=== PATIENT | male | born 1965 | race Caucasian/White ===

== ENCOUNTER 2021-03-31 20:00 | Observation (INO) | payer MEDICARE ==
[~2021-03-31] VITALS: Ht 188 cm; Wt 199.5 kg
[2021-03-31] MEDS ORDERED: ATOR80 PO (20:17)
[2021-03-31] MEDS ORDERED: ABILIFY MYCITE5 M2 PO (20:17)
[2021-03-31] MEDS ORDERED: Aspir 8181 MG PO (20:17)
[2021-03-31] MEDS ORDERED: ALBU90OI6 INH (20:17)
[2021-03-31] MEDS ORDERED: CLOZ100 PO ×2 (20:18)
[2021-03-31] MEDS ORDERED: VITAMIN D31000 UNI1 PO (20:18)
[2021-03-31] MEDS ORDERED: GABA300 PO (20:19)
[2021-03-31] MEDS ORDERED: Voltaren100 GM TOP (20:19)
[2021-03-31] MEDS ORDERED: ZESTRIL40 M1 PO (20:19)
[2021-03-31] MEDS ORDERED: Hair, Skin & N1 EACH PO (20:19)
[2021-03-31] MEDS ORDERED: METF500 PO (20:19)
[2021-03-31] MEDS ORDERED: SPIR50 PO (20:20)
[2021-03-31] MEDS ORDERED: VENL75ER PO (20:20)
[2021-03-31] MEDS ORDERED: METO25 PO (20:20)
[2021-03-31] MEDS ORDERED: PERCOCET 10-321 EAC7 PO (20:22)
[2021-04-01 04:59] LABS: BASOPHILS ABSOLUTE AUTO 0.12 K/mm3 (0.00-0.23); BASOPHILS PERCENT AUTO 1 % (0-2); EOSINOPHILS ABSOLUTE AUTO 0.59 K/mm3 (0.00-0.68); EOSINOPHILS PERCENT AUTO 5 % (0-6); Hematocrit 41.2 % (37.0-53.0); Hemoglobin 12.7 g/dL (13.5-17.5); IMMATURE GRAN ABSOLUTE AUTO 0.06 K/mm3 (0.00-0.10); IMMATURE GRAN PERCENT AUTO 1 % (0-1); LYMPHOCYTES PERCENT AUTO 27 % (21-46); MONOCYTES ABSOLUTE AUTO 0.78 K/mm3 (0.16-1.47); MONOCYTES PERCENT AUTO 7 % (4-13); Mean Corpuscular HGB Conc 30.8 g/dL (31.5-36.5); Mean Corpuscular Volume 94 fL (80-100); NEUTROPHILS ABSOLUTE AUTO 6.75 K/mm3 (1.96-9.15); NEUTROPHILS PERCENT AUTO 59 % (41-73); Platelet Count 278 K/mm3 (150-400); RDW Coefficient Variation 14.8 % (11.7-14.2); RDW Standard Deviation 51.6 fL (35.1-46.3); Red Blood Cell Count 4.38 M/mm3 (4.30-5.90)
[2021-04-01 05:05] LABS: International Normalized Ratio 0.99; Prothrombin Time Results 10.7 Sec (9.7-11.5)
[2021-04-01 05:20] LABS: Alanine Aminotransfer (ALT/SGP 42 U/L (12-78); Albumin, Blood 3.3 g/dL (3.4-5.0); Albumin/Globulin Ratio 0.8 (0.8-1.8); Alk Phos 85 U/L (50-136); Anion Gap 5 mmol/L (6-16); Aspartate Aminotrans (AST/SGOT 23 U/L (12-37); Bilirubin, Total 0.3 mg/dL (0.1-1.0); Blood Urea Nitrogen 19 mg/dL (8-24); Bun/Creatinine Ratio 17.6 (12.0-20.0); CO2, Blood 29 mmol/L (21-32); Chloride, Blood 104 mmol/L (98-108); Creatinine, Blood 1.08 mg/dL (0.60-1.20); Glomerular Filtration Rate >60 (60-); Glucose, Blood 153 mg/dL (70-99); Potassium, Blood 4.1 mmol/L (3.5-5.5); Sodium, Blood 138 mmol/L (136-145); Total Protein, Blood 7.3 g/dL (6.4-8.2)
--- NOTE | 2021-04-01 06:14 | NUR ---
SHIFT SUMMARY: PT IS ALERT AND ORIENTED. PT IS CALM AND COOPERATIVE WITH CARE. PT CALLS APPROPRIATELY. PT IS A ONE ASSIST. PT REPORTS KNEE PAIN ON ONE OCCASION, GAVE PRN HYDROCODONE. PT REPORTS SOB UPON EXERTION, SATS > 90% ON ROOM AIR. PT DENIES NAUSEA AND VOMITING. NO ACUTE CHANGES OVERNIGHT. BED IN LOW POSITION, CALL LIGHT WITHIN REACH. WILL CONTINUE TO MONITOR.
--- NOTE | 2021-04-01 19:45 | NUR ---
SUMM- PT A/O X4. INDEPENDANT AND STEADY ON FEET TO BATHROOM. TOLERATES SHORT DISTANCE, BUT BECOMES SOB AFTER ABOUT 50 FEET. CONT PULSE OX ROOM AIR RANGE 92-95%. LUNGS CTA OCC EXP WHEEZE. BLOOD SUGAR STABLE. TOLERATING FOOD AND FLUIDS WITH REQ FOR SNACKS IN BETWEEM MEALS. VICODIN FOR CHRONIC KNEE PAIN EFFECTIVE. PLAN FOR DC TOMORROW ACCORDING TO BEDSIDE REPORT OF DR WAGNER TO PT THIS AM.
[2021-04-02 05:08] LABS: Hematocrit 39.1 % (37.0-53.0); Hemoglobin 12.3 g/dL (13.5-17.5); Mean Corpuscular HGB 29.7 pg (26.0-34.0); Mean Corpuscular HGB Conc 31.5 g/dL (31.5-36.5); Mean Corpuscular Volume 94 fL (80-100); Mean Platelet Volume 9.8 fL (9.1-12.4); Platelet Count 275 K/mm3 (150-400); RDW Coefficient Variation 14.9 % (11.7-14.2); RDW Standard Deviation 51.8 fL (35.1-46.3); Red Blood Cell Count 4.14 M/mm3 (4.30-5.90); White Blood Cell Count 11.42 K/mm3 (4.00-11.30)
--- NOTE | 2021-04-02 05:30 | NUR ---
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 UP WITH SBA WITH CANE. MEDICATED FOR KNEE PAIN X1 OVERNIGHT PER EMAR. SLEPT WELL. CPAP ON WHILE ASLEEP. ROOM AIR WHILE AWAKE. CONTINOUS PULSE OX IN PLACE SATTING AT 92% AND ABOVE. DENIES NAUSEA, CHEST PAIN, DIZZNIESS. TELE SR IN THE 90'S PER SHOE LASTER. CALL LIGHT WITHIN REACH, WILL CONTINUE TO MONITOR.
[2021-04-02 05:35] LABS: Magnesium, Blood 2.2 mg/dL (1.6-2.4)
[2021-04-02 05:36] LABS: Alanine Aminotransfer (ALT/SGP 39 U/L (12-78); Albumin, Blood 3.1 g/dL (3.4-5.0); Albumin/Globulin Ratio 0.8 (0.8-1.8); Alk Phos 84 U/L (50-136); Anion Gap 4 mmol/L (6-16); Aspartate Aminotrans (AST/SGOT 24 U/L (12-37); Bilirubin, Total 0.2 mg/dL (0.1-1.0); Blood Urea Nitrogen 19 mg/dL (8-24); Bun/Creatinine Ratio 20.7 (12.0-20.0); CO2, Blood 29 mmol/L (21-32); Calcium, Blood 9.1 mg/dL (8.5-10.1); Chloride, Blood 105 mmol/L (98-108); Creatinine, Blood 0.92 mg/dL (0.60-1.20); Globulin, Blood 3.9 g/dL (2.2-4.0); Glomerular Filtration Rate >60 (60-); Glucose, Blood 166 mg/dL (70-99); Potassium, Blood 4.3 mmol/L (3.5-5.5); Sodium, Blood 138 mmol/L (136-145)
[2021-04-02 05:42] LABS: Troponin I <0.015 ng/mL (0.000-0.040)
[2021-04-02] MEDS ORDERED: NICO21TP TOP (10:57)
[2021-04-02] MEDS ORDERED: ACET325 PO (10:57)
[2021-04-02] MEDS ORDERED: XARELTO15 MG PO (10:58)
[2021-04-02] MEDS ORDERED: ONDA4 PO (10:58)
--- NOTE | 2021-04-02 14:40 | NUR ---
SUMMARY- PT DISCHARGED WITH INSTRUCTIONS. RX FAXED TO PHARMACY IN [place]. WENT OVER EDUCATION ON XERALTO AND PULM EMBOLISM. ENC. ACTIVITY IN BETWEEN LEG ELEVATION. BELONGINGS SENT HOME WITH PT. WHEEL CHAIR OUT TO PRIVATE CAR.
== END 2021-04-02 12:40 | disposition home or self-care (01) ==
LOC: ER 20:00 → MEDS 20:01 → EDPENDDIS 04-02 08:54 → ENPENDDIS 04-02 08:54 → MEDS 04-02 12:40
PROVIDERS: Family Medicine; Student in an Organized Health Care Education/Training Program; ADMIT Internal Medicine
DX: I26.93 Single subsegmental thrombotic pulmonary embolism without acute cor pulmonale (principal); G47.33 Obstructive sleep apnea (adult) (pediatric); J96.10 Chronic respiratory failure, unspecified whether with hypoxia or hypercapnia; E66.2 Morbid (severe) obesity with alveolar hypoventilation; Z68.43 Body mass index [BMI] 50.0-59.9, adult; E11.42 Type 2 diabetes mellitus with diabetic polyneuropathy; Z79.4 Long term (current) use of insulin; I10 Essential (primary) hypertension; E78.5 Hyperlipidemia, unspecified; F25.9 Schizoaffective disorder, unspecified; J45.909 Unspecified asthma, uncomplicated; Z87.891 Personal history of nicotine dependence; Z91.018 Allergy to other foods
CPT/HCPCS: 36415; 80053; 82947; 83735; 84100; 84443; 84484; 85025; 85027; 85610; 94660; 94762; 97116; 97162; 97166; 97530; 97535; 99285; A9270; G0378